=== PATIENT | female | born 1940 | race Caucasian/White ===

== ENCOUNTER 2018-10-07 21:24 | Emergency (ER) | payer OTHER ==
--- NOTE | 2018-10-07 21:30 | PDOC ---
Rapid Medical Evaluation Time Seen by Provider: 10/07/18 21:25 Medical Evaluation: Allergies Allergy/AdvReac Type Severity Reaction Status Date / Time sulfamethoxazole Allergy Verified 03/10/14 10:26 [From Bactrim] trimethoprim [From Bactrim] Allergy Verified 03/10/14 10:26 acetaminophen [From Vicodin] AdvReac Verified 03/10/14 10:26 clindamycin HCl AdvReac Verified 03/10/14 10:26 [From Cleocin] clindamycin palmitate HCl AdvReac Verified 03/10/14 10:26 [From Cleocin] clindamycin phosphate AdvReac Verified 03/10/14 10:26 [From Cleocin] hydrocodone bitartrate AdvReac Verified 03/10/14 10:26 [From Vicodin] SCALLOPS AdvReac Uncoded 03/10/14 10:26 10/07/18 21:25 I have performed a brief in-person evaluation of this patient. The patient presents with a chief complaint of: 78 yo F w/ a h/o A fib on Eliquis, DM, HTN, HLD, hiatal hernia, diverticulosis, esophageal ulcer p/w black tarry stools for the past 3-4 days, with generalized malaise, intermittent headaches, fatigue. No CP, no abdominal pain. I have ordered the following: CBC, CMP, UA, type and screen, PT/INR, EKG, CXR The patient will proceed to the ED for further evaluation. Discharge Disposition - Diagnosis Black tarry stools - Referrals - Patient Instructions - Post Discharge Activity
[2018-10-07 21:41] VITALS: TEMP 97.7; BMI 35.4
--- NOTE | 2018-10-07 21:50 | PDOC ---
History of Present Illness - General Chief Complaint: Rectal Bleed Stated Complaint: SENT BY DOCTOR Time Seen by Provider: 10/07/18 21:25 - History of Present Illness Initial Comments: 10/07/18 23:30 78yo F hx Afib on Eliquis, Dm, HTN on Atenolol, HLD, pulmonary HTN, hiatal hernia, Schatzki's ring s/p dilatationsx2 (2012), diverticulosis, duodenal ulcers (, H Pylori s/p eradication w/tx), GERD on Prilosec presents from home c/o weakness and black diarrhea x4 days. Pt first noticed a dull headache and fatigue on Thursday. Then later that day she had massive watery diarrhea. Since then, she hasn't been able to eat or drink anything without resultant massive quick black diarrhea. Last ate on Thursday. Pt c/o fatigue and malaise. She's normally active and only uses a walker for long distances, but for the past 4 days she's mostly stayed in bed and had to use the walker for short distances inside her home. Lives alone. The headache started Thursday gradually , constant, mild, dull ache at top of head, better when lying down. No hx of similar headaches. No pain medications tried or desired. Endorses lightheadedness, anorexia, and chronic cough (2/2 hiatal hernia). Denies BRBPR, pain with defecation, hx hemorrhoids, F/C, N/V, CP, SOB, vision changes, photophobia, neck pain, trauma/fall/head injury, sick contacts, numbness/ tingling, focal weakness, abdominal pain, dysuria, hematuria, constipation. Pt had black diarrhea years ago but doesn't remember what caused it. Last CLP 2010 showed diverticulosis. Last endoscopy 2014. Upper GI/barium swallow XR 2015. Rare alcohol use, former smoker, never drugs. PCP [facility]. GI Dr Olivier. Past History - Past Medical History Allergies/Adverse Reactions: Allergies Allergy/AdvReac Type Severity Reaction Status Date / Time sulfamethoxazole Allergy Verified 10/08/18 14:33 [From Bactrim] trimethoprim [From Bactrim] Allergy Verified 10/08/18 14:33 acetaminophen [From Vicodin] AdvReac Verified 10/08/18 14:33 clindamycin HCl AdvReac Verified 10/08/18 14:33 [From Cleocin] clindamycin palmitate HCl AdvReac Verified 10/08/18 14:33 [From Cleocin] clindamycin phosphate AdvReac Verified 10/08/18 14:33 [From Cleocin] hydrocodone bitartrate AdvReac Verified 10/08/18 14:33 [From Vicodin] SCALLOPS AdvReac Uncoded 10/08/18 14:33 Home Medications: Ambulatory Orders Allopurinol [Zyloprim -] 300 mg PO DAILY 03/10/14 Atenolol [Tenormin -] 100 mg PO HS 03/10/14 Calcium Carbonate/Vitamin D3 [Calcium + Vitamin D Tablet] 1 each PO BID Cholecalciferol (Vitamin D3) [Vitamin D3] 400 unit PO DAILY 03/10/14 Colchicine 0.6 mg PO PRN PRN 03/10/14 Diltiazem Cd [Cardizem Cd -] 120 mg PO DAILY 03/10/14 Irbesartan [Avapro] 150 mg PO DAILY 03/10/14 Mag Carb/Aluminum Hydrox/Algin [Gaviscon Liquid] 30 ml PO PRN PRN #0 oral.susp 03/10/14 Multivitamins [Multivit ([facility] Formulary)] 1 tab PO DAILY 03/10/14 Pantoprazole Sodium [Protonix] 40 mg PO DAILY 03/10/14 Pravastatin Sodium [Pravachol] 40 mg PO HS 03/10/14 Ranitidine [Zantac -] 150 mg PO DAILY 03/10/14 Rivaroxaban [Xarelto -] 15 mg PO DAILY 03/10/14 Sitagliptin Phosphate [Januvia] 100 mg PO DAILY 03/10/14 Nitrofurantoin Monohyd/M-Cryst [Macrobid -] 100 mg PO BID #14 capsule 10/07/18 Anemia: No Asthma: No Cancer: No Cardiac Disorders: Yes (PAROXYSNAL A-FIB) CVA: No COPD: Yes (SLEEP APNEA) CHF: No Diabetes: Yes (NIDDM) GI Disorders: Yes (DUODENAL ULCERS; SCHATZKI RING; HIATAL HERNIA; DIVERTICULOSIS ) HTN: Yes Hypercholesterolemia: Yes Liver Disease: No Thyroid Disease: No Other medical history: hiatal hernia, colitis - Surgical History Abdominal Surgery: Yes (S/P EXCISION OF BLADDER CARCINOMA POLYP) Appendectomy: No Cardiac Surgery: No Lung Surgery: No Neurologic Surgery: No Orthopedic Surgery: Yes (ISABELLE KNEE REPLACEMENTS; LEFT KNEE ARTHROSCOPY) - Suicide/Smoking/Psychosocial Hx Smoking History: Never smoked Have you smoked in the past 12 months: No Hx Alcohol Use: Yes (OCC) Drug/Substance Use Hx: No Substance Use Type: None Hx Substance Use Treatment: No Review of Systems - Review of Systems Comments:: 10/07/18 23:26 Constitutional: Positive for fatigue, malaise. Negative for chills, fever. HENT: Negative for sore throat, rhinorrhea, congestion. Eyes: Negative for visual disturbance. Respiratory: Negative for shortness of breath, cough, and wheezing. Cardiovascular: Negative for chest pain, palpitations, and leg swelling. Gastrointestinal: Positive for black tarry diarrhea, anorexia. Negative for abdominal pain, constipation, nausea, and vomiting. Genitourinary: Negative for dysuria, flank pain, and hematuria. Musculoskeletal: Positive for LBP (chronic). Negative for myalgias and neck pain. Skin: Negative for rash. Neurological: Positive for headache, light-headedness/dizziness. Negative for vertigo, syncope, focal weakness, numbness. Psychiatric/Behavioral: Negative for behavioral problems and confusion. *Physical Exam - Vital Signs Last Vital Signs Temp Pulse Resp BP Pulse Ox 97.7 F 67 18 118/70 96 10/07/18 21:26 10/07/18 21:26 10/07/18 21:26 10/07/18 21:26 10/07/18 21:26 - Physical Exam Comments: 10/07/18 23:28 Gen: Alert, NAD, comfortable-appearing. HEENT: Dry MM, PERRL, EOMI, NCAT. No conjunctival pallor. Sclera are non- icteric. Oropharynx is clear. CV: Regular rate and rhythm. No murmurs, rubs, or gallops. PULM: No resp distress. CTAB, no wheezes, rales, or rhonchi. ABD: soft, NT/ND, no rebound tenderness or guarding, no CVA tenderness. RECTAL: No hemorrhoids or masses seen or felt. No pain with digital insertion. No gross blood seen. Stool appears brown watery. BACK: No TTP of c/t/l-spine. No step-offs or deformities. MSK: No bony deformities. 2+ pulses in all extremities. NEURO: AAOx3. PERRL. CN 2-12 intact. 5/5 strength in all extremities. Sensation to light touch intact in all extremities. No pronator drift. No dysmetria. No dysdiadochokinesia. No abnormal nystagmus. No skew deviation. Normal gait. EXTREMITIES: No cyanosis. No clubbing. No edema. No calf tenderness. PSYCH: Normal mood and thought pattern. SKIN: Warm and dry. Normal capillary refill. No rashes. No jaundice. Heart Score/ECG Review - ECG Impressions Comment:: 10/07/18 22:11 NSR, 66bpm, normal axis, no LEN/TWIs ED Treatment Course - LABORATORY CBC & Chemistry Diagram: 10/07/18 21:45 10/07/18 21:45 Medical Decision Making - Medical Decision Making 10/07/18 22:45 78yo F hx Afib on Eliquis, Dm, HTN on Atenolol, HLD, pulmonary HTN, hiatal hernia, Schatzki's ring s/p dilatationsx2 (2012), diverticulosis, duodenal ulcers (, H Pylori s/p eradication w/tx), GERD on Prilosec presents from home c/o weakness and black diarrhea x4 days. Pt first noticed a dull headache and fatigue on Thursday. Then later that day she had massive watery diarrhea. Since then, she hasn't been able to eat or drink anything without resultant massive quick black diarrhea. Last ate on Thursday. Pt c/o fatigue and malaise. She's normally active and only uses a walker for long distances, but for the past 4 days she's mostly stayed in bed and had to use the walker for short distances inside her home. Lives alone. The headache started Thursday gradually , constant, mild, dull ache at top of head, better when lying down. No hx of similar headaches. No pain medications tried or desired. Endorses lightheadedness, anorexia, and chronic cough (2/2 hiatal hernia). Denies BRBPR, pain with defecation, hx hemorrhoids, F/C, N/V, CP, SOB, vision changes, photophobia, neck pain, trauma/fall/head injury, sick contacts, numbness/ tingling, focal weakness, abdominal pain, dysuria, hematuria, constipation. Pt had black diarrhea years ago but doesn't remember what caused it. Last CLP 2010 showed diverticulosis. Last endoscopy 2014. Upper GI/barium swallow XR 2015. Rare alcohol use, former smoker, never drugs. PCP [facility]. GI Dr Olivier. Hemodynamically stable, afebrile, benign abdomen exam, benign YVETTE no jessie blood , appears dehydrated but not pale. Black stool and fatigue raises concern for anemia 2/2 GI bleed. Pt has hx of duodenal ulcers and diverticulosis, so pt has RFs for both UGIB and LGIB - consider PUD, gastritis, diverticulitis, colitis, malignancy as potential etiologies. Bloody diarrhea also raises concern for mesenteric ischemia or infectious colitis, although less likely due to lack of abdominal pain and benign abdomen - obtain lact. With her generalized malaise and advanced age, also consider infection such as UTI or PNA, metabolic derangements, or cardiac etiology such as ACS/NC - r/o with EKG and labs. Hydrate with 1L IVF. -EKG -CBC, CMP, Coags, T&S, lact, Mg, Phos, cardiac profile, UA/UC -CXR -1L IVF -Dispo: pending w/u 10/07/18 23:05 FOBT done. No hemorrhoids or masses seen or felt. No pain with digital insertion. No gross blood seen. Stool appears brown watery. Labs reviewed. Of note, WBC 16.3, H/H 14.2/42.7, PLT 189. UA indicates UTI: +nitrites, 3+ leuk est, 343 WBC, 52.2 bacteria Will start abx once determine adm vs d/c. 10/08/18 00:45 FOBT negative. IVF running. Pt eating sandwich. Pt feels much better. Denies blood in stool since arrival or dizziness. Pt able to ambulate and eat. Discussed risks and benefits of admission for IV antibiotics vs d/c on PO antibiotics and f/u for stool. Discussed FOBT results and need for further evaluation. Pt feels better and would like to go home on PO antibiotics. Allergic to bactrim, but pt has used Macrobid before with no side effects. Let IVF finish then d/c home w/macrobid, strict return precautions, and GI f/u. Pt understands all dc instructions and all questions were answered. *DC/Admit/Observation/Transfer Diagnosis at time of Disposition: UTI (urinary tract infection) - Discharge Dispostion Disposition: HOME Condition at time of disposition: Improved Decision to Admit order: No - Prescriptions Prescriptions: Nitrofurantoin Monohyd/M-Cryst [Macrobid -] 100 mg PO BID #14 capsule - Referrals Referrals: Maya Marley MD [Primary Care Provider] - Tboin Pascual MD [Staff Physician] - - Patient Instructions Printed Discharge Instructions: DI for Urinary Tract Infection (UTI) Additional Instructions: You have been seen in the Emergency Department for your lightheadedness and black diarrhea. Your stool test, rectal exam, and labs show no signs of bleed. However, there is still a possibility of a bleed that is not currently active or too small to be detected - follow-up with your GI doctor within 1 week. Your urine shows a UTI (urinary tract infection). We have given you 1 dose of Nitrofurantoin (an antibiotic) and sent a prescription for the remaining 7 days to your pharmacy. Take them as directed and make sure you finish all of them even if you feel better. Follow-up with your primary care doctor within 1 week as well. If your symptoms worsen or do not start to improve in a couple days, you may need IV antibiotics. Return to the Emergency Department if so. Call 911 or return to the ED immediately if you experience fever, abdominal pain, dizziness , blood in stool, vomiting, or any other new or worsening symptom. - Post Discharge Activity
[2018-10-07 22:02] LABS: BASO % 0.5 % (0-2.0); HEMATOCRIT 42.7 % (32.4-45.2); HEMOGLOBIN 14.2 GM/dL (10.7-15.3); LYMPH % 7.5 % (8-40); MCH 31.5 pg (25.7-33.7); MCHC 33.3 g/dl (32.0-36.0); MEAN CELL VOLUME 94.7 fl (80-96); MONO % 10.4 % (3.8-10.2); NEUT % 81.6 % (42.8-82.8); PLATELET COUNT 189 K/MM3 (134-434); RBC 4.51 M/mm3 (3.60-5.2); RDW 15.4 % (11.6-15.6); WHITE BLOOD COUNT 16.3 K/mm3 (4.0-10.0)
--- NOTE | 2018-10-07 22:11 | PDOC ---
Documentation entered by Heather Whitehead SCRIBE, acting as scribe for Gage Hopkins MD. Gage Hopkins MD: This documentation has been prepared by the Ventura coley Natalie, SCRIBE, under my direction and personally reviewed by me in its entirety. I confirm that the documentation accurately reflects all work, treatment, procedures, and medical decision making performed by me. Attending Attestation - Resident Resident Name: Leeann Cardoso - ED Attending Attestation I have performed the following: I have examined & evaluated the patient, The case was reviewed & discussed with the resident, I agree w/resident's findings & plan, Exceptions are as noted - HPI HPI: 10/07/18 22:25 The patient is an 78-year-old female, with a past medical history of afib (on Eliquis), DM, HTN, HLD, hiatal hernia, diverticulosis, and esophageal ulcer, who presents to the ED with 3-4 days of frequent, loose, dark stools. Denies jessie blood. no n/v Allergies: Sulfamethoxazole, trimethoprim, acetaminophen. PCP: Dr. Maya Marley 10/07/18 23:46 - Physicial Exam PE: 10/07/18 22:26 Agree with exam as documented by resident - Medical Decision Making 10/07/18 23:44 Weakness in context of diarrhea, questionable melenotic stool at home eval for possible gi bleed f/u labs, fobt, ua No anemia +uti, neg fobt, YVETTE unconcerning DC with abx for uti return precautions
[2018-10-07 22:15] LABS: LIPASE 454 U/L (73-393)
[2018-10-07 22:18] LABS: INR 1.57 (0.83-1.09); PROTHROMBIN TIME (PATIENT) 18.6 SEC (9.7-13.0)
[2018-10-07 22:20] LABS: ALBUMIN 3.4 g/dl (3.4-5.0); BILIRUBIN,TOTAL 1.2 mg/dL (0.2-1); BLOOD UREA NITROGEN 20.5 mg/dL (7-18); CALCIUM 9.3 mg/dL (8.5-10.1); CREATININE 1.5 mg/dL (0.55-1.3); POTASSIUM 3.9 mmol/L (3.5-5.1); TOT PROT 6.8 g/dl (6.4-8.2)
[2018-10-07 22:28] LABS: HYALINE CASTS 8 /lpf (0-8); PH,URINE 5.5 (5.0-8.0); URINE APPEARANCE CLOUDY; URINE BACTERIA 52.2 /hpf (NEGATIVE); URINE BILIRUBIN 1+ (NEGATIVE); URINE COLOR DK YELLOW; URINE GLUCOSE (UA) NEGATIVE (NEGATIVE); URINE KETONE TRACE (NEGATIVE); URINE LEUK ESTERASE 3+ (NEGATIVE); URINE NITRITE POSITIVE (NEGATIVE); URINE PROTEIN 2+ (NEGATIVE); URINE WBC 343 /hpf (0-5)
[2018-10-07] MEDS ORDERED: SODIUM CHLORIDE 0.9% 500 ML INFUS.BAG IV ONE (22:44)
[2018-10-07] MEDS ORDERED: NITROFURANTOIN MACROCRYSTAL 50 MG CAPSULE (FP) PO SCH (23:45)
[2018-10-07 23:47] LABS: MAGNESIUM 1.7 mg/dL (1.8-2.4)
[2018-10-07] MEDS ORDERED: NITROFURANTOIN MACROCRYSTAL 50 MG CAPSULE (FP) ONE (23:53)
[2018-10-08 00:44] VITALS: BP 138/63; PULSE 68
--- NOTE | 2018-10-08 14:06 | EKG ---
Test Reason : Blood Pressure : / mmHG Vent. Rate : 066 BPM Atrial Rate : 066 BPM P-R Int : 150 ms QRS Dur : 086 ms QT Int : 430 ms P-R-T Axes : 063 043 061 degrees QTc Int : 450 ms NORMAL SINUS RHYTHM NORMAL ECG WHEN COMPARED WITH ECG OF 09-APR-2007 10:12, NO SIGNIFICANT CHANGE WAS FOUND Confirmed by RHETT KANG MD ([id number]) on 10/08/2018 2:06:30 PM Referred By: Confirmed By:RHETT KANG MD
== END 2018-10-08 00:46 | disposition home or self-care (01) ==
LOC: JER 21:24
DX: N39.0 Urinary tract infection, site not specified (principal); I48.91 Unspecified atrial fibrillation; Z79.01 Long term (current) use of anticoagulants; I10 Essential (primary) hypertension; E11.9 Type 2 diabetes mellitus without complications; E78.5 Hyperlipidemia, unspecified; Z87.19 Personal history of other diseases of the digestive system; Z79.84 Long term (current) use of oral hypoglycemic drugs; Z88.2 Allergy status to sulfonamides; Z88.8 Allergy status to other drugs, medicaments and biological substances; Z91.013 Allergy to seafood
CPT/HCPCS: 36415; 71045-TC-FY; 80053; 81003; 82272; 82550; 83605; 83690; 83735; 84100; 84484; 85025; 85610; 85730; 86850; 86900; 86901; 87086; 87186; 93005; 93010; 99284-25

== ENCOUNTER 2018-10-08 14:24 | Emergency (ER) | payer OTHER ==
[2018-10-08 14:32] VITALS: PULSE 74; TEMP 98; BMI 33.3
--- NOTE | 2018-10-08 15:00 | PDOC ---
History of Present Illness - General Chief Complaint: Diarrhea Stated Complaint: Diarrhea Time Seen by Provider: 10/08/18 14:59 Past History - Past Medical History Allergies/Adverse Reactions: Allergies Allergy/AdvReac Type Severity Reaction Status Date / Time sulfamethoxazole Allergy Verified 10/08/18 14:33 [From Bactrim] trimethoprim [From Bactrim] Allergy Verified 10/08/18 14:33 acetaminophen [From Vicodin] AdvReac Verified 10/08/18 14:33 clindamycin HCl AdvReac Verified 10/08/18 14:33 [From Cleocin] clindamycin palmitate HCl AdvReac Verified 10/08/18 14:33 [From Cleocin] clindamycin phosphate AdvReac Verified 10/08/18 14:33 [From Cleocin] hydrocodone bitartrate AdvReac Verified 10/08/18 14:33 [From Vicodin] SCALLOPS AdvReac Uncoded 10/08/18 14:33 Home Medications: Ambulatory Orders Allopurinol [Zyloprim -] 300 mg PO DAILY 03/10/14 Atenolol [Tenormin -] 100 mg PO HS 03/10/14 Calcium Carbonate/Vitamin D3 [Calcium + Vitamin D Tablet] 1 each PO BID Cholecalciferol (Vitamin D3) [Vitamin D3] 400 unit PO DAILY 03/10/14 Colchicine 0.6 mg PO PRN PRN 03/10/14 Diltiazem Cd [Cardizem Cd -] 120 mg PO DAILY 03/10/14 Irbesartan [Avapro] 150 mg PO DAILY 03/10/14 Mag Carb/Aluminum Hydrox/Algin [Gaviscon Liquid] 30 ml PO PRN PRN #0 oral.susp 03/10/14 Multivitamins [Multivit ([facility] Formulary)] 1 tab PO DAILY 03/10/14 Pantoprazole Sodium [Protonix] 40 mg PO DAILY 03/10/14 Pravastatin Sodium [Pravachol] 40 mg PO HS 03/10/14 Ranitidine [Zantac -] 150 mg PO DAILY 03/10/14 Rivaroxaban [Xarelto -] 15 mg PO DAILY 03/10/14 Sitagliptin Phosphate [Januvia] 100 mg PO DAILY 03/10/14 Nitrofurantoin Monohyd/M-Cryst [Macrobid -] 100 mg PO BID #14 capsule 10/07/18 Anemia: No Asthma: No Cancer: No Cardiac Disorders: Yes (PAROXYSNAL A-FIB) CVA: No COPD: Yes (SLEEP APNEA) CHF: No Diabetes: Yes (NIDDM) GI Disorders: Yes (DUODENAL ULCERS; SCHATZKI RING; HIATAL HERNIA; DIVERTICULOSIS ) HTN: Yes Hypercholesterolemia: Yes Liver Disease: No Thyroid Disease: No - Surgical History Abdominal Surgery: Yes (S/P EXCISION OF BLADDER CARCINOMA POLYP) Appendectomy: No Cardiac Surgery: No Lung Surgery: No Neurologic Surgery: No Orthopedic Surgery: Yes (ISABELLE KNEE REPLACEMENTS; LEFT KNEE ARTHROSCOPY) - Suicide/Smoking/Psychosocial Hx Smoking History: Former smoker Have you smoked in the past 12 months: No If you are a former smoker, when did you quit?: 50 YEARS AGO Information on smoking cessation initiated: No Hx Alcohol Use: No Drug/Substance Use Hx: No Substance Use Type: None Hx Substance Use Treatment: No *Physical Exam - Vital Signs Last Vital Signs Temp Pulse Resp BP Pulse Ox 98.0 F 74 16 113/47 L 97 10/08/18 14:30 10/08/18 14:30 10/08/18 14:30 10/08/18 14:30 10/08/18 14:30 ED Treatment Course - LABORATORY CBC & Chemistry Diagram: 10/08/18 16:07 10/08/18 21:30 Medical Decision Making - Medical Decision Making HPI: 78yo F with PMH of Afib (on Eliquis), DM, HTN, HLD, hiatal hernia, diverticulosis, and esophageal ulcer, who presents to the ED with a week of frequent, loose, dark stools. Patient was evaluated in this ED for the same problem. She had a workup yesterday negative of acute pathology but with a urinalysis positive for UTI. Patient was discharged with outpatient antibiotics which she had not had a chance to hand picker today. She presents today because she continues to have diarrhea. She had about 3-4 episodes of profuse black diarrhea without blood. Denies fevers, but endorses chills. No chest pain or shortness of breath. PCP: Dr. Maya Marley ROS: Constitutional: no fever, +chills HEENT: no throat pain, no dysphagia Cardiovascular: no chest pain, no palpitations Respiratory: no cough, no shortness of breath Gastrointestinal: no abdominal pain, +diarrhea Genitourinary: no dysuria, no hematuria Musculoskeletal: no myalgia, no arthralgia Skin: no rash, no itching Neurologic: no headache, +weakness PE: General: Awake, alert, and fully oriented, in no acute distress Head: No signs of trauma Eyes: EOMI, sclera anicteric ENT: Dry mucus membranes Neck: Normal ROM, supple Lungs: Lungs clear, Normal breath sounds Cardio: Regular rhythm, S1 and S2 present Abdomen: Soft, nontender. No guarding, no rebound, no masses Extremities: Normal range of motion, Distal pulses present SKIN: Warm, Dry, normal turgor Neurologic: Cranial nerves II through XII grossly intact. Normal speech Rectal: The skin is without erythema or induration. No external hemorrhoids, fissures, skin tags, warts, or discharge. Sphincter tone normal. There are no masses palpated on digital exam. Brown stool. ED Courses/MDM: DDX including but not limited to dehydration, colitis, infection, electrolyte abnormality, anemia Labs Macrobid for UTI coverage 500 cc fluid bolus 10/08/18 15:00 CBC WBC 18.7 K/mm3 (4.0-10.0) H 10/08/18 16:07 RBC 4.27 M/mm3 (3.60-5.2) 10/08/18 16:07 Hgb 13.4 GM/dL (10.7-15.3) 10/08/18 16:07 Hct 40.3 % (32.4-45.2) 10/08/18 16:07 MCV 94.6 fl (80-96) 10/08/18 16:07 MCH 31.4 pg (25.7-33.7) 10/08/18 16:07 MCHC 33.2 g/dl (32.0-36.0) 10/08/18 16:07 RDW 15.5 % (11.6-15.6) 10/08/18 16:07 Plt Count 199 K/MM3 (134-434) 10/08/18 16:07 MPV 8.3 fl (7.5-11.1) 10/08/18 16:07 Absolute Neuts (auto) 15.5 K/mm3 (1.5-8.0) H 10/08/18 16:07 Neutrophils % 82.8 % (42.8-82.8) 10/08/18 16:07 Lymphocytes % 5.8 % (8-40) L D 10/08/18 16:07 Monocytes % 10.7 % (3.8-10.2) H 10/08/18 16:07 Eosinophils % 0.1 % (0-4.5) D 10/08/18 16:07 Basophils % 0.6 % (0-2.0) 10/08/18 16:07 Nucleated RBC % 0 % (0-0) 10/08/18 16:07 Leukocytosis 10/08/18 16:47 Pending chemistries 10/08/18 16:53 CMP Sodium 138 mmol/L (136-145) 10/08/18 16:07 Potassium 3.9 mmol/L (3.5-5.1) 10/08/18 16:07 Chloride 103 mmol/L (98-107) 10/08/18 16:07 Carbon Dioxide 22 mmol/L (21-32) 10/08/18 16:07 Anion Gap 13 MMOL/L (8-16) 10/08/18 16:07 BUN 25.3 mg/dL (7-18) H 10/08/18 16:07 Creatinine 1.6 mg/dL (0.55-1.3) H 10/08/18 16:07 Est GFR (CKD-EPI)AfAm 34.91 10/08/18 16:07 Est GFR (CKD-EPI)NonAf 30.12 10/08/18 16:07 Random Glucose 108 mg/dL (74-106) H 10/08/18 16:07 Calcium 9.2 mg/dL (8.5-10.1) 10/08/18 16:07 Phosphorus 2.9 mg/dL (2.5-4.9) 10/08/18 16:07 Magnesium 1.9 mg/dL (1.8-2.4) 10/08/18 16:07 Total Bilirubin 1.1 mg/dL (0.2-1) H 10/08/18 16:07 AST 27 U/L (15-37) 10/08/18 16:07 ALT 27 U/L (13-61) 10/08/18 16:07 Alkaline Phosphatase 82 U/L (45-117) 10/08/18 16:07 Total Protein 6.9 g/dl (6.4-8.2) 10/08/18 16:07 Albumin 3.4 g/dl (3.4-5.0) 10/08/18 16:07 Electrolytes unremarkable Cr elevated, 1.6 10/08/18 17:15 CXR appears unchanged from 10/07/18, my impression CMP Sodium 138 mmol/L (136-145) 10/08/18 16:07 Potassium 3.9 mmol/L (3.5-5.1) 10/08/18 16:07 Chloride 103 mmol/L (98-107) 10/08/18 16:07 Carbon Dioxide 22 mmol/L (21-32) 10/08/18 16:07 Anion Gap 13 MMOL/L (8-16) 10/08/18 16:07 BUN 25.3 mg/dL (7-18) H 10/08/18 16:07 Creatinine 1.6 mg/dL (0.55-1.3) H 10/08/18 16:07 Est GFR (CKD-EPI)AfAm 34.91 10/08/18 16:07 Est GFR (CKD-EPI)NonAf 30.12 10/08/18 16:07 Random Glucose 108 mg/dL (74-106) H 10/08/18 16:07 Calcium 9.2 mg/dL (8.5-10.1) 10/08/18 16:07 Phosphorus 2.9 mg/dL (2.5-4.9) 10/08/18 16:07 Magnesium 1.9 mg/dL (1.8-2.4) 10/08/18 16:07 Total Bilirubin 1.1 mg/dL (0.2-1) H 10/08/18 16:07 AST 27 U/L (15-37) 10/08/18 16:07 ALT 27 U/L (13-61) 10/08/18 16:07 Alkaline Phosphatase 82 U/L (45-117) 10/08/18 16:07 Total Protein 6.9 g/dl (6.4-8.2) 10/08/18 16:07 Albumin 3.4 g/dl (3.4-5.0) 10/08/18 16:07 Cr elevated, 1.6, was 1.5 yesterday BUN elevated Will administer another 1L fluids 10/08/18 18:01 EKG: rate 75, Qtc 446, NSR Plan for CTAP to rule out abdominal pathology. As patient has elevated Cr, will obtain dry CT. Patient will drink oral contrast. 10/08/18 18:09 CT without acute pathology: "Clinical information: diarrhea x 1 week, history of diverticulosis Multiplanar imaging was performed. Intravenous contrast was not administered. Oral contrast was utilized. No prior CT studies are available at this facility for direct comparison. No evidence of pneumoperitoneum, abscess , free intraperitoneal fluid or bowel obstruction. Increased fluid is seen within the colonic lumen. There is no obvious associated wall edema or pericolonic edema. No gross small bowel pathology is identified. Colonic diverticulosis is noted without evidence of acute diverticulitis. A very large hiatal hernia is noted containing the majority of the stomach. The herniated portion of the stomach appear to demonstrate concentric wall thickening which alternatively could be artifactual due to limited distention. The appendix appears unremarkable. Mildly hyperdense material is seen within the gallbladder lumen. There is no CT evidence of acute cholecystitis. No biliary tract dilatation is noted. The liver, spleen, pancreas, adrenal glands and kidneys demonstrate no definite noncontrast pathology. Incidental bilateral renal cortical cyst. There is no aortic aneurysm. No obvious lymphadenopathy is noted. Status post hysterectomy. No CT evidence of adnexal pathology. Moderate to marked upper lumbar dextroscoliosis. Moderate to marked multilevel lumbar degenerative disc changes. Impression: Increased fluid is seen within the colonic lumen consistent with the provided history of diarrheal illness. There is no definite associated colonic wall edema or pericolonic edema. No obvious small bowel pathology is noted. Colonic diverticulosis is seen without evidence of acute diverticulitis. A very large clark hernia is noted containing the majority the stomach. The herniated portion of the stomach demonstrates possible concentric wall thickening (versus representing artifactual thickening due to underdistention). Follow-up evaluation as clinically indicated. Hyperdense material is seen within the gallbladder lumen which may represent punctate calculi, inspissated bile/sludge and/or milk of calcium bile. If clinically indicated correlate with sonography. " Cr improved to 1.4 10/08/18 22:23 Patient discharged with return precautions Amenable to follow-up with primary care physician *DC/Admit/Observation/Transfer Diagnosis at time of Disposition: Diarrhea Qualifiers: Diarrhea type: unspecified type Qualified Code(s): R19.7 - Diarrhea, unspecified - Discharge Dispostion Disposition: HOME Condition at time of disposition: Stable - Referrals Referrals: Maya Marley MD [Primary Care Provider] - - Patient Instructions Printed Discharge Instructions: DI for Diarrhea and Traveler's Diarrhea -- Adult Additional Instructions: You came into the ED for diarrhea and weakness. Labs, EKG, and imaging did not indicate acute pathology. Your labs did show signs of dehydration. Your kidney function number was 1.6 which was abnormal, but this number improved with fluids. Make sure you keep hydrated with plenty of fluids. 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 Take as instructed. Follow-up with your primary care doctor this week to discuss this ED visit and to further evaluate your symptoms. Call and make an appointment. Your workup is not completed until you do so. Immediate medical attention is required if you have: high fevers, persistent nausea, vomiting, chest pain, fainting, bright red blood in your stool, or any new or concerning symptoms. If you think you are having an emergency, call for emergency medical services or present to the emergency department right away. - Post Discharge Activity
[2018-10-08] MEDS ORDERED: SODIUM CHLORIDE 500 ML IV STA (15:43)
[2018-10-08] MEDS ORDERED: NITROFURANTOIN MACROCRYSTAL 50 MG CAPSULE (FP) PO SCH (15:45)
[2018-10-08] MEDS ORDERED: NITROFURANTOIN MACROCRYSTAL 50 MG CAPSULE (FP) ONE (15:54)
[2018-10-08 16:24] LABS: BASO % 0.6 % (0-2.0); EOS % 0.1 % (0-4.5); HEMATOCRIT 40.3 % (32.4-45.2); HEMOGLOBIN 13.4 GM/dL (10.7-15.3); LYMPH % 5.8 % (8-40); MCH 31.4 pg (25.7-33.7); MCHC 33.2 g/dl (32.0-36.0); MEAN CELL VOLUME 94.6 fl (80-96); MEAN PLT VOLUME 8.3 fl (7.5-11.1); MONO % 10.7 % (3.8-10.2); NEUT % 82.8 % (42.8-82.8); PLATELET COUNT 199 K/MM3 (134-434); RBC 4.27 M/mm3 (3.60-5.2); RDW 15.5 % (11.6-15.6); WHITE BLOOD COUNT 18.7 K/mm3 (4.0-10.0)
[2018-10-08 16:56] LABS: MAGNESIUM 1.9 mg/dL (1.8-2.4); PHOSPHOROUS 2.9 mg/dL (2.5-4.9)
[2018-10-08 17:04] LABS: ALBUMIN 3.4 g/dl (3.4-5.0); BILIRUBIN,TOTAL 1.1 mg/dL (0.2-1); BLOOD UREA NITROGEN 25.3 mg/dL (7-18); CALCIUM 9.2 mg/dL (8.5-10.1); CREATININE 1.6 mg/dL (0.55-1.3); POTASSIUM 3.9 mmol/L (3.5-5.1); TOT PROT 6.9 g/dl (6.4-8.2)
--- NOTE | 2018-10-08 17:14 | PDOC ---
Documentation entered by Jackie Carreno SCRIBE, acting as scribe for Ashok Huber MD. Ashok Huber MD: This documentation has been prepared by the alejandraibeWai Lincy, SCRIBE, under my direction and personally reviewed by me in its entirety. I confirm that the documentation accurately reflects all work, treatment, procedures, and medical decision making performed by me. Attending Attestation - Resident Resident Name: Leeann Garvin - ED Attending Attestation I have performed the following: I have examined & evaluated the patient, The case was reviewed & discussed with the resident, I agree w/resident's findings & plan, Exceptions are as noted - HPI HPI: 10/08/18 16:36 The patient is an 78-year-old female with a past medical history significant for HTN, HLD, DM, diverticulitis, and esophageal ulcers present to the emergency department with diarrhea and UTI. The patient presents with 3-4 episodes of black colored diarrhea, no relief with Imodium. The patient was seen at the ER on 10/07; the patient was worked up without acute findings and was noted to have a UTI. The patient reports since being discharged last night, she had more episodes of diarrhea and wanted to be evaluated. The patient reports associated symptoms of generalized weakness and chills. Denies fever, abdominal pain, chest pain, or shortness of breath. Patient denies picking up his abx for the UTI. Social history: Former smoker, no reported use of alcohol and recreational drugs. PCP: Dr. Marley - Physicial Exam PE: 10/08/18 17:10 general: well appearing, no distress abd:soft nontender no rebound/guarding, no cva tenderness, neg mcburneys and murphies sign pulm:cta b/l card: rrr, no mrg - Medical Decision Making 10/08/18 16:16 78y F htn, hl, dm, esophageal ulcer, presents with complaint of diarrhea, was seen last night for weakness and dx with a uti. Pt has been having approx 3 episodes of diarrhea daily that was dark in color. pt denies any abd pain, fever/chills, n/v, blood in the stool will recheck her lytes will give fluids for hydration abd soft nontender, no suspicon for acute abdomen or ocal infectious process 10/08/18 17:13 pts labs reviewed noted for leukocytosis - likely due ot her uti - abd soft notender, doubt acute proces such as appendicitis/dicverticulitis will continue to hydrate and if feeling better, anticipate dc
[2018-10-08] MEDS ORDERED: SODIUM CHLORIDE 1,000 ML IV STA (18:18)
--- NOTE | 2018-10-08 18:48 | PDOC ---
*Physical Exam - Vital Signs Last Vital Signs Temp Pulse Resp BP Pulse Ox 98.0 F 74 16 113/47 L 97 10/08/18 14:30 10/08/18 14:30 10/08/18 14:30 10/08/18 14:30 10/08/18 14:30 - Physical Exam Comments: 10/08/18 18:45 well appearing comfortable dry mucous membranes rrr s1 s2 no mrg ctab soft nt nd, no rebound or guarding ED Treatment Course - LABORATORY CBC & Chemistry Diagram: 10/08/18 16:07 10/08/18 21:30 - ADDITIONAL ORDERS Additional order review: Laboratory Results 10/08/18 10/08/18 10/08/18 16:07 16:07 16:00 Sodium 138 Potassium 3.9 Chloride 103 Carbon Dioxide 22 Anion Gap 13 BUN 25.3 H Creatinine 1.6 H Est GFR (CKD-EPI)AfAm 34.91 Est GFR (CKD-EPI)NonAf 30.12 Random Glucose 108 H Calcium 9.2 Phosphorus 2.9 Magnesium 1.9 Total Bilirubin 1.1 H AST 27 ALT 27 Alkaline Phosphatase 82 Total Protein 6.9 Albumin 3.4 Stool Occult Blood Negative 10/08/18 16:07 RBC 4.27 MCV 94.6 MCHC 33.2 RDW 15.5 MPV 8.3 Neutrophils % 82.8 Lymphocytes % 5.8 L D Monocytes % 10.7 H Eosinophils % 0.1 D Basophils % 0.6 - Medications Given in the ED: ED Medications Discontinued Medications Generic Name Dose Route Start Last Admin Trade Name Freq PRN Reason Stop Dose Admin Sodium Chloride 500 mls @ 500 mls/hr 10/08/18 15:43 10/08/18 16:09 Normal Saline - IV 10/08/18 16:42 500 mls/hr ASDIR STA Administration Medical Decision Making - Medical Decision Making 10/08/18 18:46 Cr 1.6 from 1.5 WBC 18 currently being treated for UTI however given recurrent diarrhea in 78f will obtain CTAP noncon (oral only, no IV given Cr 1.6) to ruleout intraabdominal process IV fluids CTAP w/ oral contrast dispo per CT pt well appearing can consider outpatient management with encouragement of PO hydration if improved repeat labs and CTAP with no concerning findings *DC/Admit/Observation/Transfer Diagnosis at time of Disposition: Diarrhea Qualifiers: Diarrhea type: unspecified type Qualified Code(s): R19.7 - Diarrhea, unspecified - Discharge Dispostion Disposition: HOME Condition at time of disposition: Stable - Referrals Referrals: Maya Marley MD [Primary Care Provider] - - Patient Instructions Printed Discharge Instructions: DI for Diarrhea and Traveler's Diarrhea -- Adult Additional Instructions: You came into the ED for diarrhea and weakness. Labs, EKG, and imaging did not indicate acute pathology. Your labs did show signs of dehydration. Your kidney function number was 1.6 which was abnormal, but this number improved with fluids. Make sure you keep hydrated with plenty of fluids. 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 Take as instructed. Follow-up with your primary care doctor this week to discuss this ED visit and to further evaluate your symptoms. Call and make an appointment. Your workup is not completed until you do so. Immediate medical attention is required if you have: high fevers, persistent nausea, vomiting, chest pain, fainting, bright red blood in your stool, or any new or concerning symptoms. If you think you are having an emergency, call for emergency medical services or present to the emergency department right away. - Post Discharge Activity
[2018-10-08 22:12] LABS: BLOOD UREA NITROGEN 23.6 mg/dL (7-18); CALCIUM 8.7 mg/dL (8.5-10.1); CREATININE 1.4 mg/dL (0.55-1.3); POTASSIUM 3.6 mmol/L (3.5-5.1)
[2018-10-08 22:45] VITALS: BP 113/56
--- NOTE | 2018-10-10 10:35 | EKG ---
Test Reason : Blood Pressure : / mmHG Vent. Rate : 075 BPM Atrial Rate : 075 BPM P-R Int : 146 ms QRS Dur : 086 ms QT Int : 400 ms P-R-T Axes : 057 031 050 degrees QTc Int : 446 ms NORMAL SINUS RHYTHM NORMAL ECG WHEN COMPARED WITH ECG OF 07-OCT-2018 21:45, NO SIGNIFICANT CHANGE WAS FOUND Confirmed by Jaki Everett ([id number]) on 10/10/2018 10:35:12 AM Referred By: Confirmed By:Jaki Everett
== END 2018-10-08 22:46 | disposition home or self-care (01) ==
LOC: JER 14:24
PROC: 3E0337Z Introduction of Electrolytic and Water Balance Substance into Peripheral Vein, Percutaneous Approach (ICD-10-PCS; principal; 2018-10-08)
DX: N39.0 Urinary tract infection, site not specified (principal); R19.7 Diarrhea, unspecified; I10 Essential (primary) hypertension; E78.00 Pure hypercholesterolemia, unspecified; E11.9 Type 2 diabetes mellitus without complications; Z79.84 Long term (current) use of oral hypoglycemic drugs; I48.0 Paroxysmal atrial fibrillation; Z79.01 Long term (current) use of anticoagulants; G47.39 Other sleep apnea; Z87.19 Personal history of other diseases of the digestive system
CPT/HCPCS: 36415; 71045-TC-FY; 74176-TC; 80048; 80053; 82272; 83735; 84100; 85025; 93005; 93010; 96360; 96361; 99283-25; J7030